=== PATIENT | male | born 1960 | race Caucasian/White ===

== ENCOUNTER 2023-04-28 10:08 | Outpatient (CLI) | payer MEDICARE, SELFPAY | END 2023-04-28 10:09 | disposition home or self-care (01) | PROVIDERS: PCP Family Medicine; Visit Provider Family Medicine | DX: E78.2 Mixed hyperlipidemia (principal); I10 Essential (primary) hypertension; Z12.5 Encounter for screening for malignant neoplasm of prostate | CPT/HCPCS: 80048; 80061; G0103 ==

== ENCOUNTER 2024-07-18 09:50 | Outpatient (CLI) | payer MEDICARE, SELFPAY | END 2024-07-18 09:51 | disposition home or self-care (01) | PROVIDERS: PCP Family Medicine; Visit Provider Family Medicine | DX: E78.2 Mixed hyperlipidemia (principal); E88.810 Metabolic syndrome | CPT/HCPCS: 80048; 80061 ==